=== PATIENT | female | born 1935 | race Hispanic/Latino ===

== ENCOUNTER → 2018-10-02 | Outpatient (CLI) | payer MEDICARE | END | disposition home or self-care (01) | LOC: RAH 14:26 | PROVIDERS: ATTEND Internal Medicine | DX: M79.662 Pain in left lower leg (principal); R23.4 Changes in skin texture | CPT/HCPCS: 73700 ==

== ENCOUNTER → 2020-03-31 | Outpatient (CLI) | payer MEDICARE | END | disposition home or self-care (01) | LOC: RAH 15:10 | PROVIDERS: ATTEND Internal Medicine | DX: S00.03XA Contusion of scalp, initial encounter (principal); S00.83XA Contusion of other part of head, initial encounter; G31.9 Degenerative disease of nervous system, unspecified; X58.XXXA Exposure to other specified factors, initial encounter; Y93.89 Activity, other specified; Y92.89 Other specified places as the place of occurrence of the external cause; Y99.8 Other external cause status | CPT/HCPCS: 70450; 70486 ==

== ENCOUNTER 2022-02-17 02:28 | Inpatient (IN) | payer MEDICARE ==
[~2022-02-17] VITALS: Ht 172.7 cm; Wt 83.9 kg
[2022-02-17] MEDS ORDERED: ACETAMINOPHEN 500 MG TABLET PO ONE (03:00)
[2022-02-17] MEDS ORDERED: KETOROLAC 30MG VIAL (30MG/ML) IV ONE (03:00)
[2022-02-17 03:25] LABS: APPEARANCE,URINE CLEAR (CLEAR); BILIRUBIN,URINE NEGATIVE (NEGATIVE); COLOR,URINE YELLOW (YELLOW); GLUCOSE, URINE (UA) NEGATIVE (NEGATIVE); KETONES,URINE NEGATIVE (NEGATIVE); LEUKOCYTE ESTERASE ,URINE NEGATIVE (NEGATIVE); NITRATE,URINE NEGATIVE (NEGATIVE); OCCULT BLOOD,URINE SMALL (NEGATIVE); PROTEIN,URINE NEGATIVE (NEGATIVE); UROBILINOGEN,URINE 0.2 mg/dL (0.2-1.0)
[2022-02-17 03:26] LABS: BASOPHILS % (AUTO) 0.5 % (0.0-5.0); EOSINOPHILS % (AUTO) 1.3 % (0.0-8.0); HEMATOCRIT 39.8 % (36-48); LYMPHOCYTES % (AUTO) 28.7 % (21.0-51.0); MEAN CORPUSCULAR HEMOGLOBIN 31.1 pg (27.0-33.0); MEAN CORPUSCULAR HGB CONC 33.2 g/dL (32.0-36.0); MEAN CORPUSCULAR VOLUME 93.6 fL (79-99); MONOCYTES % (AUTO) 6.1 % (3.0-13.0); NEUTROPHILS % (AUTO) 62.3 % (40.0-77.0); PLATELET COUNT (AUTO) 213 K/uL (130-400); RED BLOOD CELL COUNT(AUTO) 4.25 MIL/uL (4.00-5.50); RED CELL DISTRIBUTION WIDTH 13.6 % (11.0-15.5)
[2022-02-17] MEDS ORDERED: MORPHINE 2 MG SYG IVP ONE (03:30)
[2022-02-17] MEDS ORDERED: TRAZ-185 PO (03:34)
[2022-02-17 03:35] LABS: CREATININE 0.7 mg/dL (0.5-1.5)
[2022-02-17] MEDS ORDERED: GALA8TAB10 PO (03:36)
[2022-02-17] MEDS ORDERED: METO-408 PO (03:36)
[2022-02-17] MEDS ORDERED: SERT-440 PO (03:36)
[2022-02-17] MEDS ORDERED: ATOR10 PO (03:36)
[2022-02-17 03:39] LABS: BACTERIA,URINE None Seen /HPF (None Seen); RBC,URINE 0-1 /HPF (0-1); SQUAMOUS EPITHELIAL CELL,UR Few /HPF (0-2); WBC,URINE None Seen /HPF (0-1)
[2022-02-17 03:40] LABS: ALBUMIN 3.9 g/dL (3.5-5.0); MAGNESIUM 1.7 mg/dL (1.80-2.40); TOTAL PROTEIN, SERUM 6.8 g/dL (6.0-8.3)
[2022-02-17] MEDS ORDERED: ACETAMINOPHEN 325 MG TAB PO PRN (04:00)
[2022-02-17] MEDS ORDERED: MAGNESIUM 2GM PREMIX 50ML 50 ML IV ONE (05:33)
[2022-02-17] MEDS: MAGNESIUM 2GM PREMIX 50ML 50 ML IV PRN (05:42)
[2022-02-17] MEDS: SERTRALINE HCL 50 MG TABLET PO SCH (09:00)
[2022-02-17] MEDS: METOPROLOL SUCCINATE 25 MG TAB.SR.24H PO SCH ×2 (09:00→19:34)
[2022-02-17] MEDS: GALANTAMINE HBR 4 MG TABLET PO SCH (09:00)
[2022-02-17] MEDS: FAMOTIDINE 20MG VIAL IV SCH (09:00)
[2022-02-17 10:40] VITALS: BP 156/79
[2022-02-17 14:34] LABS: INR 0.98 (0.85-1.15); PROTHROMBIN TIME 10.7 SEC (9.6-11.6)
[2022-02-17 14:35] LABS: PARTIAL THROMBOPLASTIN TIME 28.3 SEC (26.3-35.5)
[2022-02-17 15:00] VITALS: BP 139/66
[2022-02-17] MEDS ORDERED: ATORVASTATIN 20 MG TABLET ONE (19:28)
[2022-02-17] MEDS: MORPHINE 2 MG SYG IV PRN (19:34)
[2022-02-17] MEDS: ATORVASTATIN 20 MG TABLET PO SCH (19:34)
[2022-02-17 20:44] VITALS: BP 155/72
[2022-02-17] MEDS: HYDROMORPHONE 1 MG INJ IV PRN (23:09)
[2022-02-17 23:29] VITALS: BP 137/69
[2022-02-18] VITALS (26 sets, daily range): BP systolic 122–157; BP diastolic 57–80
[2022-02-18] MEDS ORDERED: 0.9%NACL 1000ML 1,000 ML IV SCH (00:30)
[2022-02-18 04:06] LABS: BASOPHILS % (AUTO) 0.3 % (0.0-5.0); EOSINOPHILS % (AUTO) 1.3 % (0.0-8.0); HEMATOCRIT 30.4 % (36-48); LYMPHOCYTES % (AUTO) 17.1 % (21.0-51.0); MEAN CORPUSCULAR HEMOGLOBIN 31.2 pg (27.0-33.0); MEAN CORPUSCULAR HGB CONC 32.6 g/dL (32.0-36.0); MEAN CORPUSCULAR VOLUME 95.9 fL (79-99); MONOCYTES % (AUTO) 10.5 % (3.0-13.0); NEUTROPHILS % (AUTO) 70.5 % (40.0-77.0); PLATELET COUNT (AUTO) 129 K/uL (130-400); RED BLOOD CELL COUNT(AUTO) 3.17 MIL/uL (4.00-5.50); RED CELL DISTRIBUTION WIDTH 13.8 % (11.0-15.5); WHITE BLOOD COUNT (AUTO) 11.8 K/uL (4.8-10.8)
[2022-02-18 04:08] LABS: CREATININE 0.7 mg/dL (0.5-1.5); POTASSIUM 4.1 mmol/L (3.5-5.1)
[2022-02-18] MEDS ORDERED: ROPIVACAINE 0.5% 5MG/ML 30ML IJ ONE (06:48)
[2022-02-18] MEDS ORDERED: SUCCINYLCHOLINE 200MG/10ML SYR ONE (06:49)
[2022-02-18] MEDS ORDERED: ONDANSETRON 4MG INJ ONE (06:49)
[2022-02-18] MEDS ORDERED: SUCCINYLCHOLINE CHLORIDE 20 MG/ML 10 ML VIAL ONE (06:49)
[2022-02-18] MEDS ORDERED: LIDOCAINE PF 100MG/5ML (2%) SYRINGE 5ML ONE (06:49)
[2022-02-18] MEDS ORDERED: PROPOFOL 10 MG/ML 20ML VIAL IV ONE (06:50)
[2022-02-18] MEDS ORDERED: DEXAMETHASONE SOD PHOSPHATE 10MG/ML 1ML VIAL ONE (06:50)
[2022-02-18] MEDS ORDERED: NEOSTIGMINE 5MG/5ML SYR IV ONE (06:50)
[2022-02-18] MEDS ORDERED: GLYCOPYRROLATE 1 MG/5 ML SYRINGE ONE (06:50)
[2022-02-18] MEDS ORDERED: ROCURONIUM 10MG/1ML SYR 10 MG/ML ML ONE (06:50)
[2022-02-18] MEDS ORDERED: MIDAZOLAM HCL 1 MG/ML 2ML VIAL ONE (06:50)
[2022-02-18] MEDS ORDERED: FENTANYL CITRATE PF 50 MCG/1 ML 2ML VIAL ONE (06:51)
[2022-02-18] MEDS ORDERED: EPHEDRINE SULFATE 50 MG/ML AMPULE ONE (06:56)
[2022-02-18] MEDS ORDERED: CEFAZOLIN SODIUM 1 GM VIAL ONE (07:07)
[2022-02-18] MEDS ORDERED: ALBUMIN (HUMAN) 5% 250 ML IV ONE (07:11)
[2022-02-18] MEDS: METOPROLOL SUCCINATE 25 MG TAB.SR.24H PO SCH ×2 (10:59→21:36)
[2022-02-18] MEDS: FAMOTIDINE 20MG VIAL IV SCH (10:59)
[2022-02-18] MEDS: GALANTAMINE HBR 4 MG TABLET PO SCH (11:01)
[2022-02-18] MEDS: SERTRALINE HCL 50 MG TABLET PO SCH (11:01)
[2022-02-18 15:14] LABS: BASOPHILS % (AUTO) 0.2 % (0.0-5.0); HEMATOCRIT 26.7 % (36-48); LYMPHOCYTES % (AUTO) 4.4 % (21.0-51.0); MEAN CORPUSCULAR HEMOGLOBIN 31.2 pg (27.0-33.0); MEAN CORPUSCULAR HGB CONC 32.2 g/dL (32.0-36.0); MEAN CORPUSCULAR VOLUME 96.7 fL (79-99); MONOCYTES % (AUTO) 4.3 % (3.0-13.0); NEUTROPHILS % (AUTO) 90.3 % (40.0-77.0); PLATELET COUNT (AUTO) 150 K/uL (130-400); RED BLOOD CELL COUNT(AUTO) 2.76 MIL/uL (4.00-5.50); RED CELL DISTRIBUTION WIDTH 13.8 % (11.0-15.5); WHITE BLOOD COUNT (AUTO) 16.5 K/uL (4.8-10.8)
[2022-02-18 15:25] LABS: CREATININE 0.6 mg/dL (0.5-1.5); POTASSIUM 4.2 mmol/L (3.5-5.1)
[2022-02-18] MEDS: MORPHINE 2 MG SYG IV PRN (18:47)
[2022-02-18] MEDS: ATORVASTATIN 20 MG TABLET PO SCH (21:36)
[2022-02-18] MEDS: ENOXAPARIN SODIUM 30 MG/0.3 ML SQ SCH (21:37)
[2022-02-18] MEDS: HYDROMORPHONE 1 MG INJ IV PRN (23:19)
[2022-02-18] MEDS ORDERED: DiphenhydrAMINE HCL 50 MG/ML VIAL ONE (23:26)
[2022-02-18] MEDS ORDERED: DiphenhydrAMINE HCL 50 MG/ML VIAL IV ONE (23:30)
[2022-02-19 00:05] VITALS: BP 122/80
[2022-02-19] MEDS: MORPHINE 2 MG SYG IV PRN (01:57)
[2022-02-19 04:47] VITALS: BP 128/63
[2022-02-19 07:17] LABS: CREATININE 0.7 mg/dL (0.5-1.5); MAGNESIUM 1.6 mg/dL (1.80-2.40); POTASSIUM 4.3 mmol/L (3.5-5.1)
[2022-02-19 07:56] LABS: BASOPHILS % (AUTO) 0.1 % (0.0-5.0); LYMPHOCYTES % (AUTO) 16.1 % (21.0-51.0); MEAN CORPUSCULAR HEMOGLOBIN 31.1 pg (27.0-33.0); MEAN CORPUSCULAR HGB CONC 32.5 g/dL (32.0-36.0); MEAN CORPUSCULAR VOLUME 95.4 fL (79-99); MONOCYTES % (AUTO) 11.5 % (3.0-13.0); NEUTROPHILS % (AUTO) 71.8 % (40.0-77.0); PLATELET COUNT (AUTO) 121 K/uL (130-400); RED BLOOD CELL COUNT(AUTO) 2.19 MIL/uL (4.00-5.50); RED CELL DISTRIBUTION WIDTH 13.8 % (11.0-15.5); WHITE BLOOD COUNT (AUTO) 13.4 K/uL (4.8-10.8)
[2022-02-19 08:00] VITALS: BP 123/60
[2022-02-19 08:00] LABS: HEMATOCRIT 20.9 % (36-48)
[2022-02-19] MEDS: FAMOTIDINE 20MG VIAL IV SCH (09:39)
[2022-02-19] MEDS: GALANTAMINE HBR 4 MG TABLET PO SCH (09:39)
[2022-02-19] MEDS: METOPROLOL SUCCINATE 25 MG TAB.SR.24H PO SCH ×2 (09:39→19:49)
[2022-02-19] MEDS: SERTRALINE HCL 50 MG TABLET PO SCH (09:39)
[2022-02-19] MEDS: MAGNESIUM 2GM PREMIX 50ML 50 ML IV PRN (09:40)
[2022-02-19] MEDS ORDERED: MAGNESIUM 2GM PREMIX 50ML 50 ML IV PRN (11:00)
[2022-02-19 12:00] VITALS: BP 118/50
[2022-02-19 16:00] VITALS: BP 126/59
[2022-02-19 16:36] LABS: HEMATOCRIT 24.5 % (36-48)
[2022-02-19] MEDS ORDERED: ACETAMINOPHEN WITH CODEINE 1 TAB TAB PO PRN ×2 (18:30)
[2022-02-19] MEDS: ENOXAPARIN SODIUM 30 MG/0.3 ML SQ SCH (19:48)
[2022-02-19] MEDS: ATORVASTATIN 20 MG TABLET PO SCH (19:49)
[2022-02-19 20:00] VITALS: BP 133/68
[2022-02-19] MEDS ORDERED: GALANTAMINE HBR 4 MG TABLET PO SCH (21:00)
[2022-02-19] MEDS ORDERED: TRAZODONE HCL 50 MG TAB PO SCH (21:00)
[2022-02-19] MEDS ORDERED: SERTRALINE HCL 50 MG TABLET PO SCH (21:00)
[2022-02-20 00:20] VITALS: BP 130/59
[2022-02-20 04:09] LABS: BASOPHILS % (AUTO) 0.3 % (0.0-5.0); EOSINOPHILS % (AUTO) 1.2 % (0.0-8.0); HEMATOCRIT 26.1 % (36-48); LYMPHOCYTES % (AUTO) 17.5 % (21.0-51.0); MEAN CORPUSCULAR HEMOGLOBIN 29.5 pg (27.0-33.0); MEAN CORPUSCULAR HGB CONC 32.6 g/dL (32.0-36.0); MEAN CORPUSCULAR VOLUME 90.6 fL (79-99); MONOCYTES % (AUTO) 10.6 % (3.0-13.0); NEUTROPHILS % (AUTO) 69.8 % (40.0-77.0); PLATELET COUNT (AUTO) 124 K/uL (130-400); RED BLOOD CELL COUNT(AUTO) 2.88 MIL/uL (4.00-5.50); RED CELL DISTRIBUTION WIDTH 17.4 % (11.0-15.5); WHITE BLOOD COUNT (AUTO) 12.2 K/uL (4.8-10.8)
[2022-02-20 04:13] VITALS: BP 141/67
[2022-02-20 04:28] LABS: ALBUMIN 2.7 g/dL (3.5-5.0); CREATININE 0.6 mg/dL (0.5-1.5); MAGNESIUM 1.9 mg/dL (1.80-2.40); POTASSIUM 4.1 mmol/L (3.5-5.1); TOTAL PROTEIN, SERUM 5.6 g/dL (6.0-8.3)
[2022-02-20 08:00] VITALS: BP 156/65
[2022-02-20] MEDS: FAMOTIDINE 20MG VIAL IV SCH (08:55)
[2022-02-20] MEDS: METOPROLOL SUCCINATE 25 MG TAB.SR.24H PO SCH (08:55)
[2022-02-20 11:44] VITALS: BP 135/64
== END 2022-02-20 12:50 | DRG 481 ==
LOC: EDH 02:28 → EDHIP 03:33 → 4AH 10:47
PROVIDERS: ADMIT Internal Medicine; ATTEND Internal Medicine
PROC: 0QH606Z Insertion of Intramedullary Internal Fixation Device into Right Upper Femur, Open Approach (ICD-10-PCS; principal; 2022-02-18 07:18)
PROC: 30233N1 Transfusion of Nonautologous Red Blood Cells into Peripheral Vein, Percutaneous Approach (ICD-10-PCS; 2022-02-19)
DX: S72.141A Displaced intertrochanteric fracture of right femur, initial encounter for closed fracture (principal); D62 Acute posthemorrhagic anemia; Z20.822 Contact with and (suspected) exposure to COVID-19; D69.6 Thrombocytopenia, unspecified; E78.5 Hyperlipidemia, unspecified; F01.50 Vascular dementia, unspecified severity, without behavioral disturbance, psychotic disturbance, mood disturbance, and anxiety; F02.80 Dementia in other diseases classified elsewhere, unspecified severity, without behavioral disturbance, psychotic disturbance, mood disturbance, and anxiety; I10 Essential (primary) hypertension; W01.0XXA Fall on same level from slipping, tripping and stumbling without subsequent striking against object, initial encounter; I25.10 Atherosclerotic heart disease of native coronary artery without angina pectoris; I45.10 Unspecified right bundle-branch block; Z96.653 Presence of artificial knee joint, bilateral; Z95.5 Presence of coronary angioplasty implant and graft; Z90.710 Acquired absence of both cervix and uterus; Z86.73 Personal history of transient ischemic attack (TIA), and cerebral infarction without residual deficits; Y93.89 Activity, other specified; Y92.89 Other specified places as the place of occurrence of the external cause; Y99.8 Other external cause status
CPT/HCPCS: 36415; 70450; 71045; 72170; 73130; 73503; 80048; 80053; 81001; 82550; 83735; 84100; 84439; 84443; 84481; 84484; 85014; 85018; 85025; 85610; 85730; 86850; 86900; 86901; 86923; 87635; 93005; 97039; G0378; J0330; J0690; J1100; J1170; J1200; J1650; J1885; J2001; J2250; J2405; J2704; J2710; J2795; J3010; J3475; J3490; J7030; J7120; P9016; P9045